=== PATIENT | female | born 1945 | race Caucasian/White ===

== ENCOUNTER 2017-08-14 07:11 | Day surgery (SDC) | payer MEDICARE, OTHER ==
[~2017-08-14] VITALS: Ht 160 cm; Wt 96.2 kg
[~2017-08-14 07:11] MED LIST: ATOR1TAB21 PO; DULO1CAP3 PO; FURO40TA2 PO; GABA600T PO; MELO15TA4 PO; PANT40TA2 PO; TOPR50TA PO; TRAZ50TA11 PO
[2017-08-14] MEDS ORDERED: NS 1,000 ML IV ONE (07:30)
[2017-08-14] MEDS ORDERED: PROPOFOL 200 MG/20 ML VIAL As Ordered ONE ×2 (09:20→09:27)
[2017-08-14] MEDS ORDERED: LIDOCAINE 2% INJ 100 MG/5 ML SDV (FOR ANES.) As Ordered ONE (09:20)
--- NOTE | 2017-08-14 09:20 | ROOR ---
Patient Name: Samantha Phipps Procedure Date: 08/14/2017 9:04 AM Date of : 1945 Age: 71 Room: [facility] Gender: Female Note Status: Finalized Procedure: Upper GI endoscopy Indications: Surveillance for malignancy due to personal history of Alonso's esophagus Providers: Raj WILSON MD Referring MD: ADITI SINGH Requesting Provider: Medicines: Monitored Anesthesia Care Complications: No immediate complications. Procedure: Pre-Anesthesia Assessment: - The heart rate, respiratory rate, oxygen saturations, blood pressure, adequacy of pulmonary ventilation, and response to care were monitored throughout the procedure. The Endoscope was introduced through the mouth, and advanced to the jejunum. The upper GI endoscopy was accomplished without difficulty. The patient tolerated the procedure well. Findings: There were esophageal mucosal changes consistent with short-segment Alonso's esophagus present in the lower third of the esophagus. The maximum longitudinal extent of these mucosal changes was 1 cm in length. Mucosa was biopsied with a cold forceps for histology. Evidence of a Jaspreet-en-Y gastrojejunostomy was found. The gastrojejunal anastomosis was characterized by healthy appearing mucosa. The exam of the stomach was otherwise normal. The examined jejunum was normal. Impression: - Esophageal mucosal changes consistent with short-segment Alonso's esophagus. Biopsied. - Jaspreet-en-Y gastrojejunostomy with gastrojejunal anastomosis characterized by healthy appearing mucosa. - Normal examined jejunum. Recommendation: - Repeat upper endoscopy in 3 years for surveillance. - Use a proton pump inhibitor PO BID indefinitely. - Telephone endoscopist for pathology results in 2 weeks. Raj Wilson MD Raj WILSON MD 08/14/2017 9:20:05 AM This report has been signed electronically. Number of Addenda: 0 Note Initiated On: 08/14/2017 9:04 AM Estimated Blood Loss: Estimated blood loss: none.
--- NOTE | 2017-08-14 09:34 | ROOR ---
Patient Name: Samantha Phipps Procedure Date: 08/14/2017 9:04 AM Date of : 1945 Age: 71 Room: [facility] Gender: Female Note Status: Finalized Procedure: Colonoscopy Indications: Screening for colorectal malignant neoplasm Providers: Raj WILSON MD Referring MD: ADITI SINGH Requesting Provider: Medicines: Monitored Anesthesia Care Complications: No immediate complications. Procedure: Pre-Anesthesia Assessment: - The heart rate, respiratory rate, oxygen saturations, blood pressure, adequacy of pulmonary ventilation, and response to care were monitored throughout the procedure. The Colonoscope was introduced through the anus and advanced to the cecum, identified by appendiceal orifice and ileocecal valve. The colonoscopy was performed without difficulty. The patient tolerated the procedure well. The quality of the bowel preparation was fair and unsatisfactory and 20 percent obscured. Findings: The perianal and digital rectal examinations were normal. (EXAM: Complete, PREP: Fair/Adequate after extensive lavage) Small Internal Hemorrhoids. The entire examined colon appeared normal on direct and retroflexion views. Impression: - (EXAM: Complete, PREP: Fair/Adequate after extensive lavage) - Small Internal Hemorrhoids. - The entire examined colon is normal on direct and retroflexion views. - No specimens collected. Recommendation: - Repeat colonoscopy in 3 years for screening purposes and because the bowel preparation was suboptimal. Raj Wilson MD Raj WILSON MD 08/14/2017 9:34:13 AM This report has been signed electronically. Number of Addenda: 0 Note Initiated On: 08/14/2017 9:04 AM Estimated Blood Loss: Estimated blood loss: none.
[2017-08-14 09:59] VITALS: BP 135/72
== END 2017-08-14 10:00 | disposition home or self-care (01) ==
LOC: M OPP 07:11
PROVIDERS: ATTEND Internal Medicine Gastroenterology
DX: Z12.11 Encounter for screening for malignant neoplasm of colon (principal); K64.8 Other hemorrhoids; K22.70 Barrett's esophagus without dysplasia; Z98.0 Intestinal bypass and anastomosis status; I25.10 Atherosclerotic heart disease of native coronary artery without angina pectoris; I10 Essential (primary) hypertension; E78.5 Hyperlipidemia, unspecified; E11.9 Type 2 diabetes mellitus without complications; Z95.1 Presence of aortocoronary bypass graft; R12 Heartburn; K21.9 Gastro-esophageal reflux disease without esophagitis; E16.2 Hypoglycemia, unspecified; M81.0 Age-related osteoporosis without current pathological fracture; R06.83 Snoring; M79.7 Fibromyalgia; M19.90 Unspecified osteoarthritis, unspecified site; D64.9 Anemia, unspecified; Z78.0 Asymptomatic menopausal state; Z98.84 Bariatric surgery status; Z96.652 Presence of left artificial knee joint; Z88.3 Allergy status to other anti-infective agents; Z91.041 Radiographic dye allergy status; Z88.5 Allergy status to narcotic agent; Z79.899 Other long term (current) drug therapy; Z80.3 Family history of malignant neoplasm of breast
CPT/HCPCS: 43239; 88305; G0121

== ENCOUNTER → 2019-03-11 | Outpatient (REF) | payer MEDICARE ==
[~2019-03-11] MED LIST changes: -GABA600T PO; +GABA600T4 PO; +MELO15TA28 PO; -MELO15TA4 PO; -PANT40TA2 PO; +PANT40TA3 PO; +TRAZ-252 PO; -TRAZ50TA11 PO
[2019-03-11 16:26] LABS: BLOOD UREA NITROGEN 12 MG/DL (7-18); CARBON DIOXIDE LEVEL 29 MEQ/L (21-32); CHLORIDE LEVEL 106 MEQ/L (98-107); CREATININE FOR GFR 0.65 MG/DL (0.55-1.30); GLOMERULAR FILTRATION RATE > 60.0 (>39); GLUCOSE, FASTING 102 MG/DL (70-100); POTASSIUM SERUM 4.4 MEQ/L (3.5-5.1); SODIUM LEVEL 142 MEQ/L (136-145)
== END ==
LOC: M LABDRAW1 11:16
PROVIDERS: ATTEND Nurse Practitioner Family
DX: M81.0 Age-related osteoporosis without current pathological fracture (principal)

== ENCOUNTER → 2020-02-18 | Outpatient (CLI) | payer MEDICARE ==
[~2020-02-18] MED LIST changes: -DULO1CAP3 PO; +DULO1CAP6 PO
[2020-02-18 17:24] LABS: BLOOD UREA NITROGEN 15 MG/DL (7-18); CALCIUM LEVEL 8.5 MG/DL (8.8-10.2); CARBON DIOXIDE LEVEL 29 MEQ/L (21-32); CHLORIDE LEVEL 102 MEQ/L (98-107); GLOMERULAR FILTRATION RATE > 60.0 (>39); GLUCOSE, FASTING 136 MG/DL (70-100); POTASSIUM SERUM 4.1 MEQ/L (3.5-5.1); SODIUM LEVEL 138 MEQ/L (136-145)
== END ==
LOC: M PLALAB 14:36
PROVIDERS: ATTEND Internal Medicine Endocrinology, Diabetes & Metabolism
DX: M81.0 Age-related osteoporosis without current pathological fracture (principal)

== ENCOUNTER 2020-02-22 12:47 | Outpatient (CLI) | payer MEDICARE ==
[~2020-02-22] VITALS: Ht 160 cm; Wt 85.0 kg
[2020-02-22] MEDS ORDERED: ZOLEDRONIC ACID 5 MG in IV 1 EA IV ONE (13:00)
[2020-02-22 13:05] VITALS: BP 187/81
[2020-02-22 13:55] VITALS: BP 182/77
== END 2020-02-22 13:50 | disposition home or self-care (01) ==
LOC: M INFU 12:47
PROVIDERS: ATTEND Internal Medicine Endocrinology, Diabetes & Metabolism
DX: M81.0 Age-related osteoporosis without current pathological fracture (principal); Z88.4 Allergy status to anesthetic agent
CPT/HCPCS: 82310; 96365; J3489

== ENCOUNTER → 2020-06-13 | Outpatient (CLI) | payer MEDICARE ==
[~2020-06-13] MED LIST changes: +PANT40TA29 PO; -PANT40TA3 PO
[2020-06-13 13:47] LABS: BLOOD UREA NITROGEN 9 MG/DL (7-18); CARBON DIOXIDE LEVEL 30 MEQ/L (21-32); CHLORIDE LEVEL 108 MEQ/L (98-107); GLOMERULAR FILTRATION RATE > 60.0 (>39); GLUCOSE, FASTING 95 MG/DL (70-100); POTASSIUM SERUM 4.3 MEQ/L (3.5-5.1); SODIUM LEVEL 140 MEQ/L (136-145); TOTAL 25(OH) VITAMIN D 47.5 NG/ML (30.0-100.0)
== END ==
LOC: M PLALAB 10:39
PROVIDERS: ATTEND Internal Medicine Endocrinology, Diabetes & Metabolism
DX: M81.0 Age-related osteoporosis without current pathological fracture (principal); E55.9 Vitamin D deficiency, unspecified

== ENCOUNTER → 2021-04-24 | Outpatient (CLI) | payer MEDICARE ==
--- NOTE | 2021-04-24 14:32 | REP ---
INDICATION: PAIN. COMPARISON: None. TECHNIQUE: Five views of the right foot are provided. FINDINGS: Five views of the right foot demonstrate marked diffuse osteopenia. There is plantar calcaneal spurring. Some dystrophic soft tissue calcification is seen and mild subcutaneous edema is seen in the lower calf. There is moderate ankle/tibiotalar osteoarthritis with sclerosis and joint space narrowing and some spur formation. There is considerable sclerosis in the talar dome. There is fragmented osteophyte formation at the medial malleolus. Mild midfoot spurring is seen.. No fracture or subluxation is seen. No opaque foreign body noted. 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 Heel spur. Diffuse osteopenia. No other acute abnormality.. <Electronically signed by Myron Mckeon > 04/24/21 [id number]
== END ==
LOC: M WUC 12:59
PROVIDERS: ATTEND Physician Assistant
DX: M79.671 Pain in right foot (principal); M89.8X7 Other specified disorders of bone, ankle and foot; M19.071 Primary osteoarthritis, right ankle and foot; M77.31 Calcaneal spur, right foot

== ENCOUNTER 2021-05-16 11:25 | Outpatient (CLI) | payer MEDICARE ==
[2021-05-16 11:30] VITALS: BP 150/78
[2021-05-16] MEDS ORDERED: ZOLEDRONIC ACID 5 MG in IV 1 EA IV ONE (11:30)
[2021-05-16 12:30] VITALS: BP 145/80
== END 2021-05-16 12:30 | disposition home or self-care (01) ==
LOC: M INFU 11:25
PROVIDERS: ATTEND Internal Medicine Endocrinology, Diabetes & Metabolism
DX: M81.0 Age-related osteoporosis without current pathological fracture (principal)
CPT/HCPCS: 96365; J3489

== ENCOUNTER → 2021-06-23 | Outpatient (CLI) | payer MEDICARE | LOC: M LABSMTC 10:45 | PROVIDERS: ATTEND Anesthesiology | DX: Z01.812 Encounter for preprocedural laboratory examination (principal); Z20.822 Contact with and (suspected) exposure to COVID-19 ==

== ENCOUNTER 2021-06-28 10:52 | Day surgery (SDC) | payer MEDICARE ==
[~2021-06-28] VITALS: Ht 157.5 cm; Wt 84.7 kg
[~2021-06-28 10:52] MED LIST changes: +LIDOCAINE 2% 100MG/5ML SDV (FOR ANES.) As Ordered ONE; +NS 1,000 ML IV SCH; +fentaNYL 100 MCG/2 ML INJECTION (J3010) As Ordered ONE; +propofoL 500 MG/50 ML VIAL As Ordered ONE
--- NOTE | 2021-06-28 12:48 | ROOR ---
Patient Name: Samantha Phipps Procedure Date: 06/28/2021 12:33 PM Date of : 1945 Age: 75 Room: [facility] Gender: Female Note Status: Finalized Procedure: Upper GI endoscopy Indications: Surveillance for malignancy due to personal history of Alonso's esophagus Providers: Raj Wilson MD Referring MD: ADITI SINGH Requesting Provider: Medicines: Monitored Anesthesia Care Complications: No immediate complications. Procedure: Pre-Anesthesia Assessment: - The heart rate, respiratory rate, oxygen saturations, blood pressure, adequacy of pulmonary ventilation, and response to care were monitored throughout the procedure. The Endoscope was introduced through the mouth, and advanced to the jejunum. The upper GI endoscopy was accomplished without difficulty. The patient tolerated the procedure well. Findings: There were esophageal mucosal changes consistent with short-segment Alonso's esophagus present at the gastroesophageal junction. The maximum longitudinal extent of these mucosal changes was 1 cm in length. Mucosa was biopsied with a cold forceps for histology at the gastroesophageal junction. One specimen bottle was sent to pathology. Evidence of a Jaspreet-en-Y gastrojejunostomy was found. The gastrojejunal anastomosis was characterized by healthy appearing mucosa. The exam of the stomach was otherwise normal. The examined jejunum was normal. Impression: - Esophageal mucosal changes consistent with short-segment Alonso's esophagus. Biopsied. - Jaspreet-en-Y gastrojejunostomy with gastrojejunal anastomosis characterized by healthy appearing mucosa. - Normal examined jejunum. Recommendation: - Repeat upper endoscopy in 3 years for surveillance of Alonso's esophagus. Procedure Code(s): --- Professional --- 38054, Esophagogastroduodenoscopy, flexible, transoral; with biopsy, single or multiple Diagnosis Code(s): --- Professional --- Z98.0, Intestinal bypass and anastomosis status K22.70, Alonso's esophagus without dysplasia CPT copyright 2019 [employer]. All rights reserved. The codes documented in this report are preliminary and upon burn crew member review may be revised to meet current compliance requirements. Raj Wilson MD Raj Wilson MD 06/28/2021 12:48:21 PM Electronically signed by Raj Wilson MD Number of Addenda: 0 Note Initiated On: 06/28/2021 12:33 PM Estimated Blood Loss: Estimated blood loss: none.
--- NOTE | 2021-06-28 13:30 | ROOR ---
Patient Name: Samantha Phipps Procedure Date: 06/28/2021 12:34 PM Date of : 1945 Age: 75 Room: [facility] Gender: Female Note Status: Finalized Procedure: Colonoscopy Indications: High risk colon cancer surveillance: Personal history of colonic polyps Providers: Raj Wilson MD Referring MD: ADITI SINGH Requesting Provider: Medicines: Monitored Anesthesia Care Complications: No immediate complications. Procedure: Pre-Anesthesia Assessment: - The heart rate, respiratory rate, oxygen saturations, blood pressure, adequacy of pulmonary ventilation, and response to care were monitored throughout the procedure. The Colonoscope was introduced through the anus and advanced to the terminal ileum, with identification of the appendiceal orifice and IC valve. The colonoscopy was performed without difficulty. The patient tolerated the procedure well. The quality of the bowel preparation was unsatisfactory. Findings: The digital rectal exam revealed a 2 cm (diameter) soft anal polyp/mass. (EXAM: Complete, PREP: Suboptimal) A 20 mm polypoid lesion was found in the distal rectum. The lesion was semi-pedunculated. Mucosa was biopsied with a cold forceps for histology. The exam was otherwise without abnormality on direct and retroflexion views. Impression: - (EXAM: Complete, PREP: Suboptimal) - A 2 cm broadly stalked polypoid lesion at ano-rectal junction. Biopsied, (NOT REMOVED) - The examination was otherwise normal on direct and retroflexion views. Recommendation: - Refer you to a colo-rectal surgeon at appointment to be scheduled,for removal. - Repeat colonoscopy because the bowel preparation was suboptimal. - (Rec alternate colon preparation for next colonoscopy) Procedure Code(s): --- Professional --- 90256, Colonoscopy, flexible; diagnostic, including collection of specimen(s) by brushing or washing, when performed (separate procedure) Diagnosis Code(s): --- Professional --- D49.0, Neoplasm of unspecified behavior of digestive system K62.89, Other specified diseases of anus and rectum Z86.010, Personal history of colonic polyps CPT copyright 2019 [employer]. All rights reserved. The codes documented in this report are preliminary and upon physician coder review may be revised to meet current compliance requirements. Raj Wilson MD Raj Wilson MD 06/28/2021 1:29:55 PM Electronically signed by Raj Wilson MD Number of Addenda: 0 Note Initiated On: 06/28/2021 12:34 PM Estimated Blood Loss: Estimated blood loss: none.
[2021-06-28 13:40] VITALS: BP 144/60
[2021-07-20] MEDS ORDERED: VITA1CAP25 PO (09:29)
[2021-07-20] MEDS ORDERED: AMLO1TAB24 (09:29)
[2021-07-20] MEDS ORDERED: ZINC1TAB2 PO (09:29)
== END 2021-06-28 14:10 | disposition home or self-care (01) ==
LOC: M OPP 10:52
PROVIDERS: ATTEND Internal Medicine Gastroenterology
DX: Z12.11 Encounter for screening for malignant neoplasm of colon (principal); Z86.010 Personal history of colon polyps; K62.89 Other specified diseases of anus and rectum; D49.0 Neoplasm of unspecified behavior of digestive system; K22.70 Barrett's esophagus without dysplasia; Z98.0 Intestinal bypass and anastomosis status; Z79.899 Other long term (current) drug therapy; Z91.041 Radiographic dye allergy status
CPT/HCPCS: 43239; 45380; 88305; 88341; 88342; J3010

== ENCOUNTER → 2021-07-30 | Outpatient (CLI) | payer MEDICARE ==
[~2021-07-30] MED LIST changes: +AMLO1TAB24; -LIDOCAINE 2% 100MG/5ML SDV (FOR ANES.) As Ordered ONE; -NS 1,000 ML IV SCH; +VITA1CAP25 PO; +ZINC1TAB2 PO; -fentaNYL 100 MCG/2 ML INJECTION (J3010) As Ordered ONE; -propofoL 500 MG/50 ML VIAL As Ordered ONE
--- NOTE | 2021-07-31 10:51 | REP ---
INDICATION: Rectal melanoma COMPARISON: None TECHNIQUE: After the intravenous administration of 9.18 mCi of FDG 18 whole-body PET-CT was performed from the skull vertex to the toes. FINDINGS: There are scattered areas of hypermetabolism seen throughout the cervical, thoracic, and lumbar spine the maximal SUV values of which vary from 2.82-4.09. There are scattered areas of hypermetabolic activity seen in the bony pelvis ranging from 2.69 to 3.08 as maximal values. There are scattered areas of hypermetabolism seen in the bony structures of the feet and ankles with a maximal SUV value of 5.04. No other areas of abnormal hypermetabolism are identified. IMPRESSION: Scattered areas of hypermetabolic activity seen in the bony structures as described above and with no priors comparison. Certainly, bony arthritic disease particularly in the foot and ankle region could be responsible for the finding along with chronic arthritic disease in the spine. Skeletal metastasis cannot be ruled out by this exam. This needs to be correlated clinically with appropriate follow-up. <Electronically signed by Trevon Stoddard > 07/31/21 [id number]
== END ==
LOC: M PLARAD 12:11
PROVIDERS: ATTEND Specialist
DX: C20 Malignant neoplasm of rectum (principal)
CPT/HCPCS: 78816; A9552

== ENCOUNTER → 2021-12-31 | Outpatient (CLI) | payer MEDICARE ==
[~2021-12-31] MED LIST changes: -AMLO1TAB24; +AMLO1TAB24 PO; +LIDOCAINE 1% MDV 20ML VIAL As Ordered ONE; +POTA-151 PO
[2021-12-31 11:15] VITALS: BP 160/70
== END ==
LOC: M IRPRO 08:32
PROVIDERS: ATTEND Specialist
DX: R93.7 Abnormal findings on diagnostic imaging of other parts of musculoskeletal system (principal)

== ENCOUNTER → 2022-03-05 | Outpatient (CLI) | payer MEDICARE ==
[~2022-03-05] MED LIST changes: -LIDOCAINE 1% MDV 20ML VIAL As Ordered ONE
== END ==
LOC: M PLARAD 07:57
PROVIDERS: ATTEND Nurse Practitioner
DX: C20 Malignant neoplasm of rectum (principal)
CPT/HCPCS: 78816; A9552

== ENCOUNTER → 2022-10-28 | Outpatient (CLI) | payer MEDICARE ==
[~2022-10-28] MED LIST changes: +GALZ50CA PO
== END ==
LOC: M LABSMTC 11:21
PROVIDERS: ATTEND Anesthesiology
DX: Z01.812 Encounter for preprocedural laboratory examination (principal); Z11.52 Encounter for screening for COVID-19

== ENCOUNTER 2022-10-31 07:01 | Day surgery (SDC) | payer MEDICARE, OTHER ==
[~2022-10-31] VITALS: Ht 160 cm; Wt 72.1 kg
[~2022-10-31 07:01] MED LIST changes: +NS 1,000 ML IV ONE
[2022-10-31] MEDS ORDERED: ECOT81TA5 PO (08:12)
[2022-10-31] MEDS ORDERED: LIDOCAINE 2% 100MG/5ML SDV (FOR ANES.) As Ordered ONE (08:47)
[2022-10-31] MEDS ORDERED: propofoL 200 MG/20 ML VIAL As Ordered ONE (08:47)
[2022-10-31 09:25] VITALS: BP 173/72
== END 2022-10-31 09:38 | disposition home or self-care (01) ==
LOC: M OPP 07:01
PROVIDERS: ATTEND Internal Medicine Gastroenterology
DX: Z86.010 Personal history of colon polyps (principal); K92.1 Melena; C43.51 Malignant melanoma of anal skin; Z79.01 Long term (current) use of anticoagulants; Z79.02 Long term (current) use of antithrombotics/antiplatelets; Z79.899 Other long term (current) drug therapy; Z91.041 Radiographic dye allergy status; Z98.84 Bariatric surgery status; I25.810 Atherosclerosis of coronary artery bypass graft(s) without angina pectoris; I10 Essential (primary) hypertension; E78.00 Pure hypercholesterolemia, unspecified; K22.70 Barrett's esophagus without dysplasia; M79.7 Fibromyalgia

== ENCOUNTER → 2022-12-27 | Outpatient (CLI) | payer MEDICARE ==
[~2022-12-27] MED LIST changes: +ECOT81TA5 PO; -NS 1,000 ML IV ONE; +PROHANCE 279.3MG/ML 15ML VIAL As Ordered ONE
== END ==
LOC: M RAD 12:20
PROVIDERS: ATTEND Nurse Practitioner Family
DX: C21.0 Malignant neoplasm of anus, unspecified (principal)
CPT/HCPCS: 72197; A9576

== ENCOUNTER 2023-03-28 21:32 | Emergency (ER) | payer MEDICARE ==
[~2023-03-28] VITALS: Ht 160 cm; Wt 61.8 kg
[~2023-03-28 21:32] MED LIST changes: -PROHANCE 279.3MG/ML 15ML VIAL As Ordered ONE
[2023-03-28] MEDS ORDERED: NS 1,000 ML IV ONE (22:25)
[2023-03-28 22:47] LABS: BASO % 0.1 % (0.0-1.0); EOS # 0.1 10^3/uL (0.0-0.5); EOS % 0.5 % (0.0-3.0); HEMATOCRIT 33.9 % (36.0-47.0); HEMOGLOBIN 11.3 g/dl (12.0-15.5); LYMPH # 1.9 10^3/uL (1.5-5.0); LYMPH % 13.6 % (24.0-44.0); MEAN CORPUSCULAR HEMOGLOBIN 29.6 pg (27.0-33.0); MEAN CORPUSCULAR HGB CONC 33.3 g/dl (32.0-36.5); MEAN CORPUSCULAR VOLUME 88.7 fl (80.0-96.0); MONO # 1.3 10^3/uL (0.0-0.8); MONO % 9.5 % (2.0-8.0); NEUTROPHILS # 10.7 10^3/uL (1.5-8.5); NEUTROPHILS % 75.8 % (36.0-66.0); PLATELET COUNT, AUTOMATED 418 10^3/uL (150-450); RED BLOOD COUNT 3.82 10^6/uL (4.00-5.40); WHITE BLOOD COUNT 14.1 10^3/uL (4.0-10.0)
[2023-03-28 22:51] LABS: LIPASE 15 U/L (12-53)
[2023-03-28 23:10] LABS: ALBUMIN 2.5 G/DL (3.2-5.2); ALKALINE PHOSPHATASE 119 U/L (46-116); ALT/SGPT 15 U/L (7.0-40); AST/SGOT 15 U/L (<34); BILIRUBIN,TOTAL 1.1 MG/DL (0.3-1.2); BLOOD UREA NITROGEN 10 MG/DL (9-23); CALCIUM LEVEL 7.4 MG/DL (8.3-10.6); CARBON DIOXIDE LEVEL 28 MMOL/L (20-31); CHLORIDE LEVEL 100 MMOL/L (98-107); GLOMERULAR FILTRATION RATE > 60.0 (>39); GLUCOSE, FASTING 80 MG/DL (74-106); MAGNESIUM LEVEL 1.3 MG/DL (1.8-2.4); POTASSIUM SERUM 2.5 MMOL/L (3.5-5.1); SODIUM LEVEL 137 MMOL/L (136-145)
[2023-03-28 23:21] LABS: RSV AMPLIFICATION NEGATIVE (NEGATIVE)
[2023-03-29] MEDS ORDERED: MAG SULF 1GM/100ML (MAG RUN) 1 GM in IV 1 EA IV ONE ×2
[2023-03-29] MEDS ORDERED: POTASSIUM CHLORIDE 10MEQ SR TABLET PO ONE ×2 (01:00→03:00)
[2023-03-29] MEDS ORDERED: PIPERACILLIN/TAZOBACTAM SOD 4.5 GM in D5W MINI-BAG PLUS 50 ML IV ONE (01:35)
[2023-03-29 01:39] VITALS: TEMP 97.5
[2023-03-29] MEDS ORDERED: KCL 10MEQ/100ML SWI (KRUN) 10 MEQ in IV 1 EA IV ONE ×3 (01:50)
[2023-03-29] MEDS ORDERED: HOME MED LIST COMPLETE! XX SCH (02:00)
[2023-03-29] MEDS ORDERED: POTA-151 PO (02:15)
[2023-03-29] MEDS ORDERED: MAGN400C2 PO (02:15)
[2023-03-29] MEDS ORDERED: AMOX875T2 PO (02:17)
[2023-03-29 03:30] VITALS: BP 154/73
[2023-03-29 03:34] VITALS: O2SAT 95
== END 2023-03-29 04:01 | disposition home or self-care (01) ==
LOC: M ED 21:32
DX: R18.8 Other ascites (principal); E87.6 Hypokalemia; E83.42 Hypomagnesemia; I11.9 Hypertensive heart disease without heart failure; E78.5 Hyperlipidemia, unspecified; I25.10 Atherosclerotic heart disease of native coronary artery without angina pectoris; F32.A Depression, unspecified; K21.9 Gastro-esophageal reflux disease without esophagitis; Z85.048 Personal history of other malignant neoplasm of rectum, rectosigmoid junction, and anus; Z98.84 Bariatric surgery status; Z91.041 Radiographic dye allergy status; Z79.899 Other long term (current) drug therapy
CPT/HCPCS: 74176; 80053; 83605; 83690; 83735; 85025; 87631; 96365; 96366; 96367; 99285; J2543; J3475

== ENCOUNTER → 2023-04-21 | Outpatient (CLI) | payer MEDICARE ==
[~2023-04-21] MED LIST changes: +AMOX875T2 PO; +MAGN400C2 PO
== END ==
LOC: M PLARAD 08:26
PROVIDERS: ATTEND Specialist
DX: C20 Malignant neoplasm of rectum (principal)
CPT/HCPCS: 78816; A9552

== ENCOUNTER → 2023-08-11 | Outpatient (CLI) | payer MEDICARE ==
[~2023-08-11] MED LIST changes: +CEPH25SS PO; +LIDO30CR18 TOP; +NYST-38 PO; +ONDA4TAB6; +PERC5TAB12 PO; +PROC10TA5 PO; +PROC5TAB57 PO; +SPIR-10
== END ==
LOC: M PLARAD 08:26
PROVIDERS: ATTEND Specialist
DX: C20 Malignant neoplasm of rectum (principal); K44.9 Diaphragmatic hernia without obstruction or gangrene; J91.8 Pleural effusion in other conditions classified elsewhere; R18.8 Other ascites; K74.69 Other cirrhosis of liver
CPT/HCPCS: 78816; A9552

== ENCOUNTER → 2023-08-12 | Outpatient (CLI) | payer MEDICARE ==
[~2023-08-12] VITALS: Ht 160 cm; Wt 75.0 kg
[~2023-08-12] MED LIST changes: -LIDO30CR18 TOP; +LIDOCAINE 1% MDV 20ML VIAL As Ordered ONE; +LIDOCAINE W/EPINEPHRINE 1% 20ML VIAL As Ordered ONE; +MIDAZOLAM INJ 2MG/2ML VIAL As Ordered ONE; -NYST-38 PO; -PROC5TAB57 PO; +ceFAZolin 2 GM/D5W 50 ML IV BAG As Ordered ONE; +ceFAZolin SOD 2 GM in IV 1 EA IV ONE; +fentaNYL 100 MCG/2 ML INJECTION As Ordered ONE
[2023-08-12 10:25] LABS: HEMATOCRIT 34.7 % (36.0-47.0); HEMOGLOBIN 11.1 g/dl (12.0-15.5); MEAN CORPUSCULAR HEMOGLOBIN 25.6 pg (27.0-33.0); MEAN CORPUSCULAR VOLUME 80.1 fl (80.0-96.0); PLATELET COUNT, AUTOMATED 539 10^3/uL (150-450); RED BLOOD COUNT 4.33 10^6/uL (4.00-5.40); WHITE BLOOD COUNT 11.5 10^3/uL (4.0-10.0)
[2023-08-12 10:38] LABS: INR 1.16; PROTHROMBIN TIME 14.4 SECONDS (12.5-14.5)
[2023-08-12 10:39] LABS: PARTIAL THROMBOPLASTIN TIME 28.9 SECONDS (24.8-34.2)
[2023-08-12 12:50] VITALS: BP 119/67; O2SAT 99
== END ==
LOC: M IRPRO 09:53
PROVIDERS: ATTEND Specialist
DX: C26.0 Malignant neoplasm of intestinal tract, part unspecified (principal); C43.9 Malignant melanoma of skin, unspecified
CPT/HCPCS: 36571; 85027; 85610; 85730; 99152; 99153; C1887; J0690; J2250; J3010

== ENCOUNTER → 2023-08-19 | Outpatient (CLI) | payer MEDICARE ==
[~2023-08-19] MED LIST changes: +LIDO30CR18 TOP; -LIDOCAINE 1% MDV 20ML VIAL As Ordered ONE; -LIDOCAINE W/EPINEPHRINE 1% 20ML VIAL As Ordered ONE; -MIDAZOLAM INJ 2MG/2ML VIAL As Ordered ONE; +NYST-38 PO; +PROC5TAB57 PO; -SPIR-10; +SPIR-10 PO; -ceFAZolin 2 GM/D5W 50 ML IV BAG As Ordered ONE; -ceFAZolin SOD 2 GM in IV 1 EA IV ONE; -fentaNYL 100 MCG/2 ML INJECTION As Ordered ONE
[2023-08-19 08:13] VITALS: TEMP 96.8
[2023-08-19 09:49] VITALS: BP 140/75; O2SAT 96
== END ==
LOC: M IRPRO 08:04
PROVIDERS: ATTEND Internal Medicine Hematology & Oncology
DX: R18.8 Other ascites (principal)